=== PATIENT | female | born 1985 | race Two or more races ===

== ENCOUNTER 2017-12-12 22:28 | Emergency (ER) ==
[~2017-12-12] VITALS: Ht 175.3 cm; Wt 160.1 kg
[2017-12-13 00:54] LABS: BASOPHIL (%) 0.8 % (0-1); BASOPHIL COUNT 0.1 K/uL (0-0.1); EOSINOPHIL COUNT 0.1 K/uL (0-0.3); HEMATOCRIT 37.3 % (36.0-46.0); HEMOGLOBIN 12.1 G/DL (11.9-15.5); IMMATURE GRANULOCYTE (%) 0.5 % (0.0-0.7); LYMPHOCYTE (%) 30.5 % (15-42); MCH 25.5 PG (29.0-34.0); MCHC 32.4 G/DL (30.0-36.0); MCV 78.7 FL (83-99); MONOCYTE COUNT 0.6 K/uL (0-0.8); NEUTROPHIL (%) 57.2 % (45-76); NEUTROPHIL COUNT 3.7 K/uL (1.8-6.4); PLATELET COUNT 294 K/uL (156-360); RBC DIS.WIDTH-CV 17.2 % (11.8-14.6); RBC DIS.WIDTH-SD 49.2 % (39-53); RED BLOOD COUNT 4.74 M/uL (3.80-5.20); WHITE BLOOD COUNT 6.5 K/uL (4.1-10.2)
[2017-12-13 01:04] LABS: ALBUMIN 4.3 g/dL (3.2-4.8); CHLORIDE 104 mEq/L (99-109)
[2017-12-13 01:05] LABS: SODIUM 141 mEq/L (136-147)
[2017-12-13 01:07] LABS: GLUCOSE 94 mg/dL (70-99); TOTAL PROTEIN 8.2 g/dL (6.4-8.3)
[2017-12-13 01:09] LABS: TOTAL BILIRUBIN 0.3 mg/dL (0.0-1.0)
[2017-12-13 01:10] LABS: ALKALINE PHOSPHATASE 60 IU/L (3-129)
[2017-12-13 01:11] LABS: CREATININE 0.8 mg/dL (0.6-1.3)
[2017-12-13 01:12] LABS: AST (GOT) 16 IU/L (2-34); DIRECT BILIRUBIN 0.2 mg/dL (0.0-0.3); GFR ESTIMATE (CALCULATED) > 59 mL/min/; UREA NITROGEN (BUN) 13 mg/dL (9-23)
[2017-12-13 01:13] LABS: ALT (GPT) 23 IU/L (3-49)
[2017-12-13 01:27] LABS: QUANTITATIVE HCG < 4.0 MIU/ML
[2017-12-13 11:21] LABS: HEPATITIS C ANTIBODY Nonreactive
[2017-12-13 11:22] LABS: HEPATITIS B SURFACE ANTIBODY Nonreactive; HIV-1/2 AB/AG COMBO Nonreactive
== END 2017-12-13 02:51 | disposition home or self-care (01) ==
LOC: EME 22:28
PROVIDERS: Physician Assistant
DX: Z77.21 Contact with and (suspected) exposure to potentially hazardous body fluids (principal); Z20.6 Contact with and (suspected) exposure to human immunodeficiency virus [HIV]; Y93.F9 Activity, other caregiving; Y99.0 Civilian activity done for income or pay; Y92.239 Unspecified place in hospital as the place of occurrence of the external cause; Z91.040 Latex allergy status
CPT/HCPCS: 80048; 80076; 84702; 85025; 86706; 86803; 87389; 99281; 99284